=== PATIENT | male | born 1995 | race Caucasian/White ===

== ENCOUNTER → 2016-05-10 | Outpatient (CLI) | payer OTHER, BC ==
[~2016-05-10] MED LIST: CYCL-375 PO; NAPR500T PO; NO ROUTINE MEDS
--- NOTE | 2016-05-11 08:16 | DI ---
Indication: ITS.REASON: S06.0X9A INJURY PROCEDURE: MRI BRAIN W/O CONTRAST: Encounter: Initial Comparisons: Head CT dated April 26, 2016 Technique: Multiplanar, multisequence, MR imaging of the head without contrast was acquired. FINDINGS: The ventricles are unchanged. The brain stem, cerebellum, and cerebral hemispheres have a normal morphologic appearance as well as MR signal intensity on all pulse sequences. There are no areas of restricted diffusion on diffusion weighted imaging to suggest an acute infarct. There is no evidence of an intracranial mass lesion, intracranial hemorrhage, or hydrocephalus. The visualized portions of the orbits, calvarium, and skull base demonstrate no significant abnormality. [id number] sinus mucosal thickening. IMPRESSION: No acute abnormality seen. .
== END ==
LOC: IMA 16:46
PROVIDERS: ATTEND Family Medicine Sports Medicine
DX: S06.0X9A Concussion with loss of consciousness of unspecified duration, initial encounter (principal); V47.0XXA Car driver injured in collision with fixed or stationary object in nontraffic accident, initial encounter; Y93.9 Activity, unspecified; Y92.411 Interstate highway as the place of occurrence of the external cause; Y99.9 Unspecified external cause status; J34.89 Other specified disorders of nose and nasal sinuses